=== PATIENT | male | born 1985 | race African-American/Black ===

== ENCOUNTER 2019-07-18 17:22 | Emergency (ER) | payer OTHER ==
[~2019-07-18] VITALS: Ht 175.3 cm; Wt 115.7 kg
[2019-07-18 17:26] VITALS: BP 130/79
--- NOTE | 2019-07-18 17:48 | NUR ---
BLEEDING CONTROLLED WITH GAUZE AND DIRECT PRESSURE
--- NOTE | 2019-07-18 17:49 | NUR ---
C/O FINGER LACERATION X 30MIN. PT REPORTS CITTING ONIONS AND ACCIDENTLY CUT TIP OF LT 1ST DIGIT. PT THINKS LAST TETANUS WAS 9 YEARS AGO. PT STATES HE BLEED THRU A COUPLE GAUZES. BLEEDING IS CONTROLLED NOW. MEDHX:DENIES RX:DENIES
--- NOTE | 2019-07-18 17:54 | NUR ---
DR. OROZCO EVALUATING PT AT BEDSIDE.
[2019-07-18] MEDS ORDERED: SILVER NITRATE APPLICATOR 1 EA SWAB TP ONE ×2 (18:03→18:05)
[2019-07-18] MEDS ORDERED: KETOROLAC 60 MG/2 ML VIAL IM ONE (18:10)
[2019-07-18 18:38] VITALS: BP 130/79
--- NOTE | 2019-07-18 18:38 | NUR ---
Patient discharged with v/s stable. Written and verbal after care instructions given and explained. Patient alert, oriented and verbalized understanding of instructions. Ambulatory with steady gait. All questions addressed prior to discharge. ID band removed. Patient advised to follow up with PMD. Rx of TRAMADOL HCL 50 MG AND MOTRIN 800 MG TAB given. Patient educated on indication of medication including possible reaction and side effects. Opportunity to ask questions provided and answered.
== END 2019-07-18 18:38 | disposition home or self-care (01) ==
LOC: MED 17:22
DX: S61.002A Unspecified open wound of left thumb without damage to nail, initial encounter (principal); W26.0XXA Contact with knife, initial encounter; Y93.89 Activity, other specified; Y92.89 Other specified places as the place of occurrence of the external cause; Y99.8 Other external cause status
CPT/HCPCS: 90471; 90715; 96372; 99283; J1885